=== PATIENT | female | born 1945 | race Caucasian/White ===

== ENCOUNTER 2022-10-25 19:40 | Emergency (ER) | payer MEDICARE, BC ==
[~2022-10-25] VITALS: Ht 180.3 cm; Wt 95.0 kg
[2022-10-25 19:44] VITALS: BP 195/86
[2022-10-25] MEDS ORDERED: LIDOCAINE 2%/EPI 1:100,000 inj. Multi-dose 20 ML VIAL SQ ONE (20:35)
[2022-10-25] MEDS ORDERED: LIDOcaine 1% W/epiNEPHrine 1:100,000 20ml vial SQ ONE (20:35)
[2022-10-25] MEDS ORDERED: acetaminophen 325mg tablet PO ONE (20:55)
[2022-10-25] MEDS ORDERED: bacitracin 15gm ointment TP ONE (21:30)
== END 2022-10-25 21:47 | disposition home or self-care (01) ==
LOC: ER 19:41
DX: S01.91XA Laceration without foreign body of unspecified part of head, initial encounter (principal); S09.90XA Unspecified injury of head, initial encounter; E78.00 Pure hypercholesterolemia, unspecified; Z87.891 Personal history of nicotine dependence; W01.190A Fall on same level from slipping, tripping and stumbling with subsequent striking against furniture, initial encounter; Y93.89 Activity, other specified; Y92.89 Other specified places as the place of occurrence of the external cause; Y99.8 Other external cause status
CPT/HCPCS: 12013; 70450; 99284; A6449